=== PATIENT | female | born 1945 | race Caucasian/White ===

== ENCOUNTER → 2018-07-30 | Outpatient (CLI) | payer MEDICARE ==
[2018-07-30 14:52] LABS: BASO % 0.5 % (0.0-1.0); EOS # 0.2 10^3/uL (0.0-0.50); EOS % 2.1 % (0.0-3.0); HEMATOCRIT 44.1 % (42.0-52.0); HEMOGLOBIN 14.5 g/dl (13.5-17.5); LYMPH # 1.5 10^3/uL (1.5-4.5); LYMPH % 16.7 % (24.0-44.0); MEAN CORPUSCULAR HEMOGLOBIN 29.6 pg (27.0-33.0); MEAN CORPUSCULAR HGB CONC 32.9 g/dl (32.0-36.5); MONO # 0.7 10^3/uL (0.0-0.8); MONO % 7.5 % (0.0-5.0); NEUTROPHILS # 6.4 10^3/uL (1.8-7.7); NEUTROPHILS % 72.7 % (36.0-66.0); PLATELET COUNT, AUTOMATED 307 10^3/uL (150-450); WHITE BLOOD COUNT 8.7 10^3/uL (4.0-10.0)
[2018-07-30 15:14] LABS: ALBUMIN 4.3 GM/DL (3.2-5.2); ALT/SGPT 26 U/L (12-78); BILIRUBIN,TOTAL 0.6 MG/DL (0.2-1.0); BLOOD UREA NITROGEN 19 MG/DL (7-18); CALCIUM LEVEL 9.1 MG/DL (8.8-10.2); CARBON DIOXIDE LEVEL 30 MEQ/L (21-32); CHLORIDE LEVEL 100 MEQ/L (98-107); CHOLESTEROL LEVEL 196 MG/DL (<200); CHOLESTEROL RISK RATIO 3.015 (<5); CREATININE FOR GFR 0.97 MG/DL (0.70-1.30); FREE T4 1.14 NG/DL (0.76-1.46); GLOMERULAR FILTRATION RATE > 60.0 (>42); GLUCOSE, FASTING 98 MG/DL (70-100); HDL CHOLESTEROL 65 MG/DL (>40); LDL CHOLESTEROL 109 MG/DL (<100); NON-HDL-C 131 MG/DL; POTASSIUM SERUM 4.1 MEQ/L (3.5-5.1); SODIUM LEVEL 134 MEQ/L (136-145); TOTAL PROTEIN 7.8 GM/DL (6.4-8.2); TRIGLYCERIDES LEVEL 110 MG/DL (<150)
[2018-07-30 15:46] LABS: ERYTHROCYTE SEDIMENTATION RATE 5 mm/hr (0-20)
== END ==
LOC: M LAB 14:13 → EDSEX 14:13
PROVIDERS: ATTEND Physician Assistant Medical
DX: I10 Essential (primary) hypertension (principal); E78.2 Mixed hyperlipidemia; E55.9 Vitamin D deficiency, unspecified; R53.83 Other fatigue

== ENCOUNTER → 2018-09-21 | Outpatient (CLI) | payer MEDICARE ==
[~2018-09-21] MED LIST: ALEV220T22 PO; ASPI81TA85 PO; ATEN50TA2 PO; ATOR1TAB19 PO; COQ150CH PO; FLUO40CA PO; HYDR-3713 PO; MS C15TA8 PO; ONETAB35 PO; PURE500C5 PO; TRAM1CAP15 PO; XARE10TA PO
[2018-09-21 10:38] LABS: INR 0.97
[2018-09-21 10:39] LABS: PARTIAL THROMBOPLASTIN TIME 29.4 SECONDS (25.4-37.6)
--- NOTE | 2018-09-21 11:24 | REP ---
Chest x-ray: Two views. History: Preop chest x-ray. Hypertension. Findings: The lungs are somewhat hyperinflated. Pleural angles are sharp. There are granulomatous lymph node calcifications in the mediastinum. Heart size is normal. Pulmonary vasculature is not increased. There are degenerative changes in the lower thoracic spine. Impression: Hyperinflation. No acute disease. Electronically Signed by Marino Tejeda MD 09/21/2018 02:47 P
--- NOTE | 2018-09-21 23:55 | ECGEPIP ---
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
== END ==
LOC: M LAB 09:57
PROVIDERS: ATTEND Physician Assistant Medical
DX: Z01.818 Encounter for other preprocedural examination (principal); M16.11 Unilateral primary osteoarthritis, right hip

== ENCOUNTER 2018-09-25 06:54 | Inpatient (IN) | payer MEDICARE ==
--- NOTE | 2018-09-24 09:23 | HPE ---
DATE OF ADMISSION: 09/25/2018 ATTENDING PHYSICIAN: Jeffry Cardoza MD CHIEF COMPLAINT: Right hip pain and stiffness. HISTORY: This is a pleasant 72-year-old female patient with progressively worsening right hip pain and stiffness. She has failed to improve with conservative management and has elected for right hip total arthroplasty for her continued symptoms. She has consented for right hip total arthroplasty by Dr. Cardoza. ALLERGIES: No known drug allergies. CURRENT MEDICATIONS: - fluoxetine 40 mg one p.o. b.i.d. - atenolol 50 mg one p.o. daily - atorvastatin 10 mg one p.o. at bedtime PAST MEDICAL HISTORY: Hypertension. Depression. Hyperlipidemia. Chronic right hip pain. PAST SURGICAL HISTORY: Right total knee arthroplasty. Right foot bunionectomy. Cataract extraction. FAMILY HISTORY: Noncontributory. SOCIAL HISTORY: Patient does not smoke. Denies alcohol use. 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 REVIEW OF SYSTEMS: Denies fever, chills, chest pain, shortness breath, nausea, vomiting, diarrhea, recent upper respiratory or urinary tract infection symptoms. She does report right hip pain and stiffness with weightbearing activities. PHYSICAL EXAMINATION: VITAL SIGNS: Height 5 feet 6-1/2 inches, weight 170.8, temperature 98.6, blood pressure 135/85, pulse 86, respirations 18. She is normocephalic, atraumatic, well-developed, well-nourished adult female who ambulates with an antalgic gait favoring the right side. Examination of the right hip shows overlying skin is intact with no erythema, edema or ecchymosis or rash. She has discomfort throughout range of motion of the right hip. The right lower extremity is well perfused. Neck is supple and nontender with no lymphadenopathy or jugular venous distention (JVD). Lungs are clear to auscultation bilaterally with no wheezes, rales, rhonchi. Cardiovascular: Regular rate and rhythm. Abdomen: Soft and nontender to palpation. EKG noted for sinus rhythm. Chest x-ray with no acute cardiopulmonary processes. LABS: White count 8.7, red count 4.9, hemoglobin 14.5, hematocrit 44.1, sed rate 5, BUN 19, creatinine 0.97, PT 13, INR 0.97. Preoperative medical optimization by Dr. Butcher was completed and reviewed today on the chart. IMPRESSION: Right hip symptomatic osteoarthritis. PLAN: Consented for right total hip arthroplasty by Dr. Jeffry Cardoza.
[~2018-09-25] VITALS: Ht 170.2 cm; Wt 77.1 kg
[~2018-09-25 06:54] MED LIST changes: +LR 1,000 ML IV ONE; -MS C15TA8 PO; -XARE10TA PO
[2018-09-25] MEDS ORDERED: PROPOFOL 500 MG/50 ML VIAL As Ordered ONE (07:41)
[2018-09-25] MEDS ORDERED: BUPIVACAINE/DEXTROSE 0.75% 2 ML AMP As Ordered ONE (07:41)
[2018-09-25] MEDS ORDERED: LIDOCAINE 2% INJ 100 MG/5 ML SDV (FOR ANES.) As Ordered ONE (07:41)
[2018-09-25] MEDS ORDERED: fentaNYL 100 MCG/2 ML INJECTION (J3010) As Ordered ONE (07:42)
[2018-09-25] MEDS ORDERED: MIDAZOLAM INJ 2 MG/2 ML VIAL (J2250) As Ordered ONE (07:42)
[2018-09-25] MEDS ORDERED: TRANEXAMIC ACID 100 MG/ML 10ML VIAL As Ordered ONE (07:57)
[2018-09-25] MEDS ORDERED: EPINEPHrine 1MG/ML INJ 30ML MD-VIAL As Ordered ONE (07:58)
[2018-09-25] MEDS ORDERED: ceFAZolin 1GM INJ (J0690 PER 500MG) As Ordered ONE (07:58)
[2018-09-25] MEDS ORDERED: BUPIVACAINE LIPOSOME/PF 1.3% 20ML VIAL (13.3MG/ML)(EXPAREL)(C9290 PER1MG) As Ordered ONE (07:59)
--- NOTE | 2018-09-25 08:35 | IPN ---
DATE: 09/25/2018 The patient seen and examined. She wished to go ahead with a right total hip arthroplasty. Pre-op medical clearance was obtained. She understands the nature this the risks of bleeding, infection, damage to nerves, vessels, persistent pain, wear loosening, dislocation, leg length inequality, blood clots, medical problems, , among others. She wishes to proceed with hip replacement for severe right hip pain.
[2018-09-25] MEDS ORDERED: PHENYLephrine HCL 500 MCG/5 ML (100MCG/ML) SYRINGE (J2370) As Ordered ONE (09:34)
[2018-09-25] MEDS ORDERED: ePHEDrine SULFATE 25 MG/5 ML(5MG/ML) SYRINGE As Ordered ONE (09:34)
[2018-09-25] MEDS ORDERED: LR 1,000 ML IV SCH ×2 (10:45→11:00)
[2018-09-25] MEDS ORDERED: ACETAMINOPHEN TAB 650MG DOSE (2X325MG) PO PRN (10:45)
[2018-09-25] MEDS ORDERED: ONDANSETRON 4MG/2ML VIAL (J2405) IV PRN (10:45)
[2018-09-25] MEDS ORDERED: MORPHINE 4 MG/ML 1ML VIAL/SYRINGE (J2270) IV PRN ×2 (10:45)
[2018-09-25] MEDS ORDERED: FLEET ENEMA PR PRN (10:45)
[2018-09-25] MEDS ORDERED: PROMETHAZINE INJ 25 MG/ML VIAL (J2550) IV PRN (11:00)
[2018-09-25] MEDS ORDERED: METOCLOPRAMIDE INJ 10MG/2ML VIAL (J2765) IV PRN (11:00)
[2018-09-25] MEDS ORDERED: fentaNYL 100 MCG/2 ML INJECTION (J3010) IV PRN (11:00)
--- NOTE | 2018-09-25 11:06 | RO ---
DATE OF PROCEDURE: 09/25/2018 PREOPERATIVE DIAGNOSIS: Right hip osteoarthritis. POSTOPERATIVE DIAGNOSIS: Right hip osteoarthritis. PROCEDURE: Right total hip arthroplasty using a [place] size 6 standard +5 36 ball, 58 acetabular component. SURGEON: Jeffry Cardoza MD SHIPPING POINT INSPECTOR: Sylvester Abdi PA-C ANESTHESIA: Spinal. ESTIMATED BLOOD LOSS (EBL): 200. COMPLICATIONS: None. INDICATION: A 72-year-old woman who has had gradually worsening right hip pain with some shortening of this right leg. She was not able to tolerate the discomfort any more and wished to go ahead with a hip replacement. She understood the nature of this, the risks of bleeding, infection, damage to nerves, vessels, persistent pain, wear loosening, dislocation, leg length inequality that is persistent, among others. DESCRIPTION OF PROCEDURE: The patient was taken to the operating room, placed in the left lateral decubitus position after the spinal was introduced. The right hip was prepped and draped in usual sterile fashion. She was placed on the [place] positioner. All areas were padded appropriately. The right hip was prepped and draped in the usual sterile fashion. Time-out was performed. I then created a longitudinal incision over the lateral aspect of the hip. Sharp dissection was carried down through subcutaneous tissue until the fascia was encountered. I controlled hemostasis with the cautery. I then incised the fascia khang and exposed the abductor. She did have some abductor pull-off that was noted with some sclerosis along the lateral side of her trochanter. I then gradually divided the anterior 40% of the abductor off, exposing the femoral neck and exposing the proximal femur down to the lesser trochanter. We gradually externally rotated the femur and dislocated the hip without difficulty. I then used the canal-initiating reamer followed by the canal-finding reamer and lateralizing reamer and sequentially reamed up to a size 6, which had good purchase and seemed to be the appropriate size, and this was templated. The neck cut was made about three-quarters of a fingerbreadth up from the lesser trochanter. We directed our attention to the acetabulum and removed soft tissue from around the acetabulum. There were some cysts noted. I then sequentially reamed and eventually reamed up to a size 57, which had good bleeding bone. I was able to get through the sclerotic bone. There was some anterior osteophyte. I irrigated copiously and then impacted in a 58 cup, which had excellent fit and was very solid, well seated in the appropriate amount of anteversion and horizontal tilt. I placed the actual 58 x 36 liner and impacted this in place. I had placed an apex hole eliminator and irrigated. I then directed attention to the femur and sequentially broached up to a size 6, which had a good fit and fill. We trialed off this with a 1.5 standard and a 5 standard. I felt that the 5 standard was the most appropriate, had good soft tissue tension, minimal shuck in full extension, excellent stability in flexion internal rotation and extension external rotation. I felt as though I was not able to lengthen her any more due to soft tissue tension. We then selected these components. I irrigated, placed the actual stem, impacted it in place, dried the taper, placed the +5 36 ball, impacted this in place. We then reduced the hip, again put the hip through range of motion. I was very pleased with stability and position. I had removed the osteophytes from the anterior wall of the acetabulum. The Exparel was then placed in the deep tissues. I placed tranexamic acid (TXA) in the deep tissues, repaired the minimus with #1 Vicryl suture, irrigated copiously as I had several times prior to this, repaired the abductor with #1 Vicryl suture with several stitches being placed through the bone. I had also decorticated the sclerotic area along the lateral aspect of the femur. Excellent repair was noted. I then irrigated, closed the fascia khang with #1 Vicryl suture, running Stratafix, subcutaneous with 2-0 Vicryl, irrigating at each level, closed the skin with peace. Sterile dressing was applied. She was taken to recovery room in stable condition. The plan will be routine postoperative. The commercial assistant was instrumental in holding retractors, assisting in reducing and dislocating the hip, and assisting in wound closure.
--- NOTE | 2018-09-25 11:28 | REP ---
Portable right hip two views: On the AP view, there is a total hip arthroplasty with the components tightly applied and in satisfactory position alignment. Lateral view is suboptimal for visualization of the acetabular cup and femoral head portion of the arthroplasty. The arthroplasty stem is in satisfactory position alignment. A repeat lateral view is recommended. Electronically Signed by Darion Raines MD 09/25/2018 11:20 A
[2018-09-25] MEDS: NORCO, ANEXSIA 5/325MG TABLET (HYDROcodone/ACETAMINOPHEN) PO PRN ×3 (11:58→21:42)
--- NOTE | 2018-09-25 12:57 | CR.PDOC ---
General Date of Consultation: September 25, 2018 Referring Provider: Jeffry Cardoza Attending Physician: ALLAN ALATORRE MD Consultation REASON FOR CONSULTATION/CHIEF COMPLAINT: [Medical management]. HISTORY OF PRESENT ILLNESS: [72 years old white female with progressively worsening of the right hip pain and stiffness. She felt improved with conservative management. Hence was sent to the orthopedic surgeon who elected as right total hip arthroplasty for continued symptoms and she has hip arthroplasty done today and we will called in for medical management]. ALLERGIES: Please see below. HOME MEDICATIONS: Please see below. PAST MEDICAL HISTORY: Hypertension, depression, hyperlipidemia, chronic right hip pain]. PAST SURGICAL HISTORY: Right total knee arthroplasty, right foot bunionectomy, cataract extraction FAMILY HISTORY: Father: [Noncontributory] Mother: [Noncontributory] Siblings: [Noncontributory] Children: [Noncontributory] Hereditary Diseases: [Not applicable] Unexpected deaths due to medical reasons: [None] SOCIAL HISTORY: Marital status and/or living arrangements: [Lives with family] Children: Employment: Tobacco use:[, No] ETOH: [, No] Illicit drug use: [, No] IV drug use: Other relevant social factors: REVIEW OF SYSTEMS: CONSTITUTIONAL: [No complaints]. HEENT: [, No eye ENT complaint]. CARDIOVASCULAR: [. No chest pain or arrhythmia]. RESPIRATORY: [Claribel breath or cough]. GENITOURINARY: [Dysuria, frequency]. MUSCULOSKELETAL: [, Muscle aches or pains]. GASTROINTESTINAL: [, No nausea, vomiting, diarrhea]. SKIN: [No rash or redness ]. NEUROLOGICAL: [. No weakness or facial palsy]. PSYCHIATRIC: [No depression, anxiety, ]. ENDOCRINE: [, No no and diabetes, hypothyroidism]. HEMATOLOGIC/LYMPHATIC: [Anemia of weakness]. ALLERGIC/IMMUNOLOGIC: . PHYSICAL EXAMINATION: VITAL SIGNS: Please see below. GENERAL APPEARANCE: [Awake, alert, oriented, in no distress]. HEENT: [TIGIST]. RESPIRATORY: [Clear to A&P]. CARDIOVASCULAR: [S1, S2, regular]. ABDOMEN: [, Soft, nontender, bowel sounds present]. EXTREMITIES: [No clubbing, cyanosis, edema]. NEUROLOGICAL: [, No motor or sensory deficit]. PSYCHIATRIC: [. No weakness]. LABORATORY DATA: Please see below. ASSESSMENT/PLAN: #1, status post right total hip replacement #2, hypertension #3, hyperlipidemia Patient has been admitted to medical floor for further care And management has been started by surgery DVT prophylaxis with sternal to his been started Will hold aspirin in the meantime Continue all other home medication including beta blockers and statin PT, OT Will follow patient with you throughout her stay at the [facility] floor Vital Signs/I&O Vital Signs Date Time Temp Pulse Resp B/P (MAP) Pulse Ox O2 Delivery O2 Flow Rate FiO2 09/25/18 12:20 16 09/25/18 12:01 57 128/63 (84) 98 09/25/18 11:10 97.7 Laboratory Data Labs 24H Laboratory Tests 2 09/25/18 07:12: Erythrocyte Sedimentation Rate 18 Allergies Coded Allergies: oxycodone (Verified Adverse Reaction, Intermediate, drop in BP, 08/28/18) Home Medications Scheduled Ascorbic Acid (Vitamin C) 500 Mg Capsule.er, 500 MG PO DAILY, (Reported) Aspirin (Aspir 81) 81 Mg Tablet.dr, 81 MG PO DAILY, #30 (Reported) Atenolol (Atenolol) 50 Mg Tablet, 50 MG PO DAILY, (Reported) Atorvastatin Calcium (Atorvastatin Calcium) 10 Mg Tablet, 10 MG PO DAILY, (Reported) Fluoxetine Hcl (Fluoxetine HCl) 40 Mg Capsule, 40 MG PO DAILY, (Reported) Folic Acid/Multivit,Iron,Cochise (One Daily For Women Tablet) 1 Each Tablet, 1 TAB PO DAILY, (Reported) Naproxen Sodium (Aleve) 220 Mg Tablet, 220 MG PO PRN, (Reported) Scheduled PRN Hydrocodone/Acetaminophen (Hydrocodone-Acetamin 5-325 mg) 1 Each Tablet, 1 TAB PO Q6H PRN for PAIN, #20 (Reported) MDD 4 Miscellaneous Medications Ubidecarenone (Coq10) 50 Mg Tab.chew, 30 MG PO, (Reported) ALLAN ALATORRE MD September 25, 2018 12:56
[2018-09-25 13:00] VITALS: BP 138/68
[2018-09-25 13:30] VITALS: BP 145/67
[2018-09-25 14:30] VITALS: BP 128/58
[2018-09-25 15:30] VITALS: BP 144/73
[2018-09-25] MEDS: FLUoxetine 20 MG CAP PO SCH (16:39)
[2018-09-25] MEDS: ATORVASTATIN 10 MG TAB PO SCH (16:39)
[2018-09-25] MEDS: ATENOLOL 50 MG TAB PO SCH (16:39)
[2018-09-25 19:30] VITALS: BP 124/64
[2018-09-25 23:30] VITALS: BP 124/56
[2018-09-26 03:30] VITALS: BP 129/61
[2018-09-26 05:50] LABS: HEMATOCRIT 30.5 % (36.0-47.0); HEMOGLOBIN 9.8 g/dl (12.0-15.5); MEAN CORPUSCULAR HEMOGLOBIN 29.7 pg (27.0-33.0); MEAN CORPUSCULAR HGB CONC 32.1 g/dl (32.0-36.5); MEAN CORPUSCULAR VOLUME 92.4 fl (80.0-96.0); PLATELET COUNT, AUTOMATED 238 10^3/uL (150-450); WHITE BLOOD COUNT 8.5 10^3/uL (4.0-10.0)
[2018-09-26] MEDS ORDERED: traMADol 50 MG TAB PO PRN ×2 (06:00)
[2018-09-26 06:20] LABS: ALT/SGPT 21 U/L (12-78); BILIRUBIN,TOTAL 0.6 MG/DL (0.2-1.0); BLOOD UREA NITROGEN 24 MG/DL (7-18); CALCIUM LEVEL 8.1 MG/DL (8.8-10.2); CARBON DIOXIDE LEVEL 27 MEQ/L (21-32); CHLORIDE LEVEL 100 MEQ/L (98-107); CREATININE FOR GFR 0.73 MG/DL (0.55-1.30); GLOMERULAR FILTRATION RATE > 60.0 (>39); GLUCOSE, FASTING 117 MG/DL (70-100); MAGNESIUM LEVEL 1.8 MG/DL (1.8-2.4); POTASSIUM SERUM 3.7 MEQ/L (3.5-5.1); SODIUM LEVEL 134 MEQ/L (136-145); TOTAL PROTEIN 6.4 GM/DL (6.4-8.2)
[2018-09-26] MEDS: ACETAMINOPHEN 500 MG TAB PO SCH ×3 (06:39→21:47)
[2018-09-26] MEDS ORDERED: HYDR-3713 PO (07:04)
[2018-09-26] MEDS ORDERED: XARE10TA PO (07:04)
[2018-09-26] MEDS: MIRALAX *UNIT DOSE* 17GM PACKET PO SCH (08:11)
[2018-09-26] MEDS: ATORVASTATIN 10 MG TAB PO SCH (08:11)
[2018-09-26] MEDS: ONDANSETRON 4 MG TAB (S0181) PO PRN ×2 (08:11→20:32)
[2018-09-26] MEDS: MOM 30ML SUSPENSION UDC PO SCH (08:11)
[2018-09-26] MEDS: FLUoxetine 20 MG CAP PO SCH (08:19)
[2018-09-26] MEDS: MORPHINE 15 MG SA TAB PO SCH ×2 (08:19→20:32)
[2018-09-26 10:00] VITALS: BP 99/57
[2018-09-26] MEDS: ATENOLOL 50 MG TAB PO SCH (11:23)
--- NOTE | 2018-09-26 12:49 | IPNPDOC ---
Subjective Date Seen The patient was seen on 09/26/18. Subjective Chief Complaint/HPI Patient is comfortable of her no new complaints. The present time General: Denies: ROS Unobtainable, Chills, Night Sweats, Fatigue, Malaise, Normal Appetite, Other Symptoms Constitutional: Denies: Chills, Fever, Malaise, Night Sweats, Weakness, Fatigue, Weight Loss, Lethargy, Other Eyes: Denies: Pain, Vision change, Conjunctivae inflammation, Eyelid inflammation, Redness, Other ENT: Denies: Head Aches, Ear Pain, Dysphagia, Sinus Congestion, Post Nasal D rip, Sore Throat, Epistaxis, Other Symptoms Skin: Denies: Rash, Lesions, Jaundice, Bruising, Itching, Dry, Breakdown, Nail Changes, Other Pulmonary: Denies: Dyspnea, Cough, Pleuritic Chest Pain, Other Symptoms Cardiovascular: Denies: Chest Pain, Palpitations, Orthopnea, Paroxysmal Noc. Dyspnea, Edema, Lt Headedness, Other Symptoms Gastrointestinal: Denies: Nausea, Vomiting, Abdominal Pain, Diarrhea, Constipat ion, Melena, Hematochezia, Other Symptoms Genitourinary: Denies: Dysuria, Frequency, Incontinence, Hematuria, Retention, Other Symptoms Hematologic: Denies: Bruising, Bleeding Excessively, Petecchia, Purpura, Enlarged Lymph Nodes, Other Hematologic Endocrine: Denies: Polydipsia, Polyphagia, Polyuria, Heat Intolerance, Cold Intolerance, Other Endocrine Sx Musculoskeletal: Denies: Neck Pain, Back Pain, Shoulder Pain, Arm Pain, Hand Pain, Leg Pain, Foot Pain, Joint Pain, Muscle Pain, Spasms, Other Symptoms Neurological: Denies: Weakness, Numbness, Incoordination, Change in speech, Confusion, Seizures, Other Symptoms Psych: Denies: Mood Normal, Anxiety, Depression, Memory Issues, Thoughts of Self Harm, Anger, Thoughts of Harming Other, Other Psych Objective Physical Examination General Exam: Positive: Alert, Cooperative Eye Exam: Positive: PERRLA, Conjunctiva & lids normal ENT Exam: Positive: Atraumatic Neck Exam: Positive: Supple, JVD Chest Exam: Positive: Clear to auscultation, Normal air movement Heart Exam: Positive: Rate Normal, Normal S1, Normal S2 Abdomen Exam: Positive: Normal bowel sounds, Soft, Tenderness, Hepatospenomegaly Skin Exam: Positive: Nl turgor and temperature Neuro Exam: Positive: Normal Gait, Normal Speech Psych Exam: Positive: Mental status NL A-FIB/CHADSVASC A-FIB History Current/History of A-Fib/PAF?: No Assessment /Plan Problems (1) HTN (hypertension) Status: Chronic Response to Treatment: Controlled Problem Text: Under well control Continue present meds (2) Hyperlipemia Status: Chronic Problem Text: Continue home meds (3) Hip joint replacement status Status: Acute Problem Text: Postop day #1 PT eval Pain management Further, as per orthopedic Plan/VTE VTE Prophylaxis Ordered?: Yes VS, I&O, 24H, Fishbone Vital Signs/I&O Vital Signs Date Time Temp Pulse Resp B/P (MAP) Pulse Ox O2 Delivery O2 Flow Rate FiO2 09/26/18 11:23 72 99/57 09/26/18 10:00 97.7 16 95 I&O- Last 24 Hours up to 6 AM 09/26/18 06:00 Intake Total 3650 ml Output Total 1050 ml Balance 2600 ml Laboratory Data 24H LABS Laboratory Tests 2 09/26/18 05:28: Nucleated Red Blood Cells % (auto) 0.0, Anion Gap 7L, Glomerular Filtration Rate > 60.0, Blood Urea Nitrogen 24H, Creatinine 0.73, Sodium Level 134L, Potassium Level 3.7, Chloride Level 100, Carbon Dioxide Level 27, Calcium Level 8.1L, Aspa rtate Amino Transf (AST/SGOT) 19, Alanine Aminotransferase (ALT/SGPT) 21, Alkaline Phosphatase 67, Total Bilirubin 0.6, Total Protein 6.4, Albumin 3.0L, Magnesium Level 1.8, Albumin/Globulin Ratio 0.88L CBC/BMP Laboratory Tests 09/26/18 05:28 Red Blood Count 3.30 L, Mean Corpuscular Volume 92.4, Mean Corpuscular Hemoglobin 29.7, Mean Corpuscular Hemoglobin Concent 32.1, Red Cell Distribution Width 14.2, Calcium Level 8.1 L, Aspartate Amino Transf (AST/SGOT) 19, Alanine Aminotransferase (ALT/SGPT) 21, Alkaline Phosphatase 67, Total Bilirubin 0.6, Total Protein 6.4, Albumin 3.0 L ALLAN ALATORRE MD September 26, 2018 12:49
[2018-09-26 14:00] VITALS: BP 119/57
[2018-09-26] MEDS: RIVAROXABAN 10 MG TAB (XARELTO) PO SCH (18:02)
[2018-09-26 22:00] VITALS: BP 132/58
[2018-09-27 06:00] VITALS: BP 142/65
[2018-09-27] MEDS ORDERED: MS C15TA8 PO (06:19)
[2018-09-27] MEDS: ACETAMINOPHEN 500 MG TAB PO SCH ×3 (06:22→21:04)
[2018-09-27 06:26] LABS: HEMATOCRIT 30.5 % (36.0-47.0); HEMOGLOBIN 9.9 g/dl (12.0-15.5); MEAN CORPUSCULAR HEMOGLOBIN 29.8 pg (27.0-33.0); MEAN CORPUSCULAR HGB CONC 32.5 g/dl (32.0-36.5); MEAN CORPUSCULAR VOLUME 91.9 fl (80.0-96.0); PLATELET COUNT, AUTOMATED 249 10^3/uL (150-450); RED BLOOD COUNT 3.32 10^6/uL (4.00-5.40); WHITE BLOOD COUNT 8.3 10^3/uL (4.0-10.0)
[2018-09-27] MEDS: ATENOLOL 50 MG TAB PO SCH (09:32)
[2018-09-27] MEDS: FLUoxetine 20 MG CAP PO SCH (09:32)
[2018-09-27] MEDS: MOM 30ML SUSPENSION UDC PO SCH (09:32)
[2018-09-27] MEDS: MIRALAX *UNIT DOSE* 17GM PACKET PO SCH (09:32)
[2018-09-27] MEDS: MORPHINE 15 MG SA TAB PO SCH ×2 (09:33→20:45)
[2018-09-27] MEDS: ATORVASTATIN 10 MG TAB PO SCH (09:33)
[2018-09-27] MEDS: ONDANSETRON 4 MG TAB (S0181) PO PRN ×2 (09:33→21:01)
--- NOTE | 2018-09-27 10:01 | IPNPDOC ---
Subjective Date Seen The patient was seen on 09/27/18. Subjective Chief Complaint/HPI Offers no new complaints. Physical therapy and progress General: Denies: ROS Unobtainable, Chills, Night Sweats, Fatigue, Malaise, Normal Appetite, Other Symptoms Constitutional: Denies: Chills, Fever, Malaise, Night Sweats, Weakness, Fatigue, Weight Loss, Lethargy, Other Eyes: Denies: Pain, Vision change, Conjunctivae inflammation, Eyelid inflammation, Redness, Other ENT: Denies: Head Aches, Ear Pain, Dysphagia, Sinus Congestion, Post Nasal Drip, Sore Throat, Epistaxis, Other Symptoms Skin: Denies: Rash, Lesions, Jaundice, Bruising, Itching, Dry, Breakdown, Nail Changes, Other Pulmonary: Denies: Dyspnea, Cough, Pleuritic Chest Pain, Other Symptoms Cardiovascular: Denies: Chest Pain, Palpitations, Orthopnea, Paroxysmal Noc. Dyspnea, Edema, Lt Headedness, Other Symptoms Gastrointestinal: Denies: Nausea, Vomiting, Abdominal Pain, Diarrhea, Constipation, Melena, Hematochezia, Other Symptoms Genitourinary: Denies: Dysuria, Frequency, Incontinence, Hematuria, Retention, Other Symptoms Hematologic: Denies: Bruising, Bleeding Excessively, Petecchia, Purpura, Enlarged Lymph Nodes, Other Hematologic Endocrine: Denies: Polydipsia, Polyphagia, Polyuria, Heat Intolerance, Cold Intolerance, Other Endocrine Sx Musculoskeletal: Denies: Neck Pain, Back Pain, Shoulder Pain, Arm Pain, Hand Pain, Leg Pain, Foot Pain, Joint Pain, Muscle Pain, Spasms, Other Symptoms Neurological: Denies: Weakness, Numbness, Incoordination, Change in speech, Confusion, Seizures, Other Symptoms Psych: Denies: Mood Normal, Anxiety, Depression, Memory Issues, Thoughts of Self Harm, Anger, Thoughts of Harming Other, Other Psych Objective Physical Examination General Exam: Positive: Alert, Cooperative Eye Exam: Positive: PERRLA, Conjunctiva & lids normal ENT Exam: Positive: Atraumatic Neck Exam: Positive: Supple, JVD Chest Exam: Positive: Clear to auscultation, Normal air movement Heart Exam: Positive: Rate Normal, Normal S1, Normal S2 Abdomen Exam: Positive: Normal bowel sounds, Soft, Tenderness, Hepatospenomegaly Skin Exam: Positive: Nl turgor and temperature Neuro Exam: Positive: Normal Gait, Normal Speech Psych Exam: Positive: Mental status NL A-FIB/CHADSVASC A-FIB History Current/History of A-Fib/PAF?: No Assessment /Plan Problems (1) HTN (hypertension) Status: Chronic Response to Treatment: Controlled Problem Text: Under well control Continue present meds (2) Hyperlipemia Status: Chronic Problem Text: Continue home meds (3) Hip joint replacement status Status: Acute Problem Text: Postop day #1 PT eval Pain management Further, as per orthopedic Plan/VTE VTE Prophylaxis Ordered?: Yes VS, I&O, 24H, Fishbone Vital Signs/I&O Vital Signs Date Time Temp Pulse Resp B/P (MAP) Pulse Ox O2 Delivery O2 Flow Rate FiO2 09/27/18 09:33 16 09/27/18 09:32 68 142/65 09/27/18 06:00 98.7 97 I&O- Last 24 Hours up to 6 AM 09/27/18 06:00 Intake Total 1770 ml Output Total 3050 ml Balance -1280 ml Laboratory Data 24H LABS Laboratory Tests 2 09/27/18 05:20: Nucleated Red Blood Cells % (auto) 0.0 CBC/BMP Laboratory Tests 09/27/18 05:20 Red Blood Count 3.32 L, Mean Corpuscular Volume 91.9, Mean Corpuscular Hemoglobin 29.8, Mean Corpuscular Hemoglobin Concent 32.5, Red Cell Distribution Width 14.3 ALLAN ALATORRE MD September 27, 2018 10:01
[2018-09-27 15:00] VITALS: BP 127/76
[2018-09-27] MEDS: RIVAROXABAN 10 MG TAB (XARELTO) PO SCH (17:52)
[2018-09-27 22:00] VITALS: BP 126/66
[2018-09-28] MEDS: ACETAMINOPHEN 500 MG TAB PO SCH (05:46)
[2018-09-28 06:00] VITALS: BP 168/55
[2018-09-28] MEDS: MOM 30ML SUSPENSION UDC PO SCH (09:04)
[2018-09-28] MEDS: MIRALAX *UNIT DOSE* 17GM PACKET PO SCH (09:05)
[2018-09-28] MEDS: ATORVASTATIN 10 MG TAB PO SCH (09:07)
[2018-09-28] MEDS: MORPHINE 15 MG SA TAB PO SCH (09:07)
[2018-09-28] MEDS: FLUoxetine 20 MG CAP PO SCH (09:08)
[2018-09-28 09:09] VITALS: BP 168/55
[2018-09-28] MEDS: ATENOLOL 50 MG TAB PO SCH (09:09)
--- NOTE | 2018-09-28 09:37 | IPNPDOC ---
Subjective Date Seen The patient was seen on 09/28/18. Subjective Chief Complaint/HPI Patient is a 72-year-old female with progressively worsening right hip pain and stiffness. She failed to improve with conservative management and elected for right hip total arthroplasty. Right hip arthroplasty was completed at 09/26/2018 without perioperative events. Events since last encounter This morning, complains of right hip and leg pain rated 6 out of 10, but bearable. Has no other complaint. Denies chest pain, shortness of breath. Objective Physical Examination Other physical findings GENERAL: NAD SKIN : Warm, dry HEENT: Atraumatic, normocephalic, PERRL, moist mucous membrane CARDIOVASCULAR: Regular rate and rhythm, S1S2, no JVD, no edema, distal pulses + and palpable RESP: CTAB, no accessory muscle use noted ABDOMEN: BS+ non distended non tender MS: Right hip pain NEURO: Alert and oriented x 3, CN2-12 grossly intact PSYCH: no anxiety or agitation, appropriate mood and affect. A-FIB/CHADSVASC A-FIB History Current/History of A-Fib/PAF?: No Current Oral Anticoagulant The: No Assessment /Plan Problems (1) HTN (hypertension) Status: Chronic Response to Treatment: Controlled Problem Text: -Continue atenolol -Blood pressure monitoring. Unit protocol- (2) Hyperlipemia Status: Chronic Problem Text: Continue atorvastatin (3) Hip joint replacement status Status: Acute Problem Text: -Status post right hip arthroplasty -Management by primary team -Tolerating physical therapy without issues -Pain management by primary team (4) DVT prophylaxis Problem Text: -Continue Xarelto Plan/VTE VTE Prophylaxis Ordered?: Yes VS, I&O, 24H, Fishbone Vital Signs/I&O Vital Signs Date Time Temp Pulse Resp B/P (MAP) Pulse Ox O2 Delivery O2 Flow Rate FiO2 09/28/18 09:09 71 168/55 09/28/18 09:07 16 09/28/18 06:00 98.4 96 I&O- Last 24 Hours up to 6 AM 09/28/18 06:00 Intake Total 2580 ml Output Total 450 ml Balance 2130 ml JULIANNA FABIAN CONCRETE FINISHER APPRENTICE September 28, 2018 09:37
--- NOTE | 2018-10-01 15:49 | DSES ---
DATE OF ADMISSION: 09/25/2018 DATE OF DISCHARGE: 09/28/2018 ATTENDING PHYSICIAN: Dr. Cardoza ADMISSION DIAGNOSIS: Osteoarthritis, right hip. OTHER DIAGNOSES: 1. Hypertension. 2. Depression. 3. Elevated lipids. DISCHARGE DIAGNOSIS: Osteoarthritis, right hip status post right total hip arthroplasty. OPERATION PERFORMED: Right total hip arthroplasty. HISTORY: This a pleasant 72-year-old female patient with progressively worsening right hip pain and stiffness. She failed to improve with conservative management. She was admitted for elective hip replacement on the right side. HOSPITAL COURSE: The patient was admitted on the day of surgery and underwent a right total hip arthroplasty which was uneventful. She did have a slow recovery in the postoperative period due to pain control issues. Ultimately, her pain was under control. On the day of discharge, she was doing well, weightbearing as tolerated on her right lower extremity. She will use thromboembolic-deterrent (MARYAN) stockings for 30 days postoperative for deep vein thrombosis (DVT) prophylaxis. She will resume her preoperative medications and diet. She will followup in our office in 10-14 days for surgical followup. She was given instructions to include but not limited to wound monitoring and activity limitations. She will also use Xarelto 10 mg per the protocol for DVT prophylaxis. Please refer to the medical record further details.
== END 2018-09-28 13:15 | disposition home or self-care (01) | DRG 470 ==
LOC: EDSEX → M OR 06:54 → EDUNIT# 08:30 → M MS5PR 12:45
PROVIDERS: ADMIT Orthopaedic Surgery; ATTEND Orthopaedic Surgery
PROC: 0SR904A Replacement of Right Hip Joint with Ceramic on Polyethylene Synthetic Substitute, Uncemented, Open Approach (ICD-10-PCS; principal; 2018-09-25 08:30)
DX: M16.11 Unilateral primary osteoarthritis, right hip (principal); Z79.899 Other long term (current) drug therapy; I10 Essential (primary) hypertension; F32.9 Major depressive disorder, single episode, unspecified; E78.5 Hyperlipidemia, unspecified; Z96.651 Presence of right artificial knee joint; Z79.82 Long term (current) use of aspirin

== ENCOUNTER → 2018-10-01 | Outpatient (REF) | payer MEDICARE ==
[~2018-10-01] MED LIST changes: -LR 1,000 ML IV ONE; +MS C15TA8 PO; +XARE10TA PO
[2018-10-01 18:54] LABS: BASO % 0.4 % (0.0-1.0); EOS # 0.1 10^3/uL (0.0-0.50); EOS % 1.8 % (0.0-3.0); HEMATOCRIT 30.2 % (36.0-47.0); HEMOGLOBIN 9.9 g/dl (12.0-15.5); LYMPH # 0.8 10^3/uL (1.5-4.5); LYMPH % 11.6 % (24.0-44.0); MEAN CORPUSCULAR HEMOGLOBIN 30.6 pg (27.0-33.0); MEAN CORPUSCULAR HGB CONC 32.8 g/dl (32.0-36.5); MEAN CORPUSCULAR VOLUME 93.2 fl (80.0-96.0); MONO # 0.9 10^3/uL (0.0-0.8); MONO % 12.1 % (0.0-5.0); NEUTROPHILS # 5.3 10^3/uL (1.8-7.7); NEUTROPHILS % 73.1 % (36.0-66.0); PLATELET COUNT, AUTOMATED 428 10^3/uL (150-450); RED BLOOD COUNT 3.24 10^6/uL (4.00-5.40); WHITE BLOOD COUNT 7.3 10^3/uL (4.0-10.0)
[2018-10-01 19:37] LABS: ERYTHROCYTE SEDIMENTATION RATE 83 mm/hr (0-30)
== END ==
LOC: M LABDRAW1 16:53
PROVIDERS: ATTEND Physician Assistant Surgical
DX: Z47.1 Aftercare following joint replacement surgery (principal); Z79.899 Other long term (current) drug therapy

== ENCOUNTER 2018-10-02 12:40 | Emergency (ER) | payer MEDICARE ==
[~2018-10-02] VITALS: Ht 170.2 cm; Wt 75.9 kg
[2018-10-02 14:20] LABS: HEMATOCRIT 30.9 % (36.0-47.0); HEMOGLOBIN 10.2 g/dl (12.0-15.5); MEAN CORPUSCULAR HEMOGLOBIN 30.8 pg (27.0-33.0); MEAN CORPUSCULAR VOLUME 93.4 fl (80.0-96.0); PLATELET COUNT, AUTOMATED 435 10^3/uL (150-450); RED BLOOD COUNT 3.31 10^6/uL (4.00-5.40); WHITE BLOOD COUNT 7.3 10^3/uL (4.0-10.0)
[2018-10-02 14:39] LABS: BLOOD UREA NITROGEN 14 MG/DL (7-18); C REACTIVE PROTEIN QUANTITATIV 7.52 MG/DL (0.00-0.30); CALCIUM LEVEL 9.1 MG/DL (8.8-10.2); CARBON DIOXIDE LEVEL 27 MEQ/L (21-32); CHLORIDE LEVEL 98 MEQ/L (98-107); GLOMERULAR FILTRATION RATE > 60.0 (>39); GLUCOSE, FASTING 108 MG/DL (70-100); POTASSIUM SERUM 4.8 MEQ/L (3.5-5.1); SODIUM LEVEL 133 MEQ/L (136-145)
[2018-10-02 15:12] LABS: ERYTHROCYTE SEDIMENTATION RATE 106 mm/hr (0-30)
[2018-10-02 16:24] VITALS: BP 108/61
== END 2018-10-02 16:25 | disposition home or self-care (01) ==
LOC: M ED 12:40
DX: M96.89 Other intraoperative and postprocedural complications and disorders of the musculoskeletal system (principal); Z96.641 Presence of right artificial hip joint; I10 Essential (primary) hypertension; K21.9 Gastro-esophageal reflux disease without esophagitis; Z88.5 Allergy status to narcotic agent

== ENCOUNTER → 2018-10-10 | Outpatient (REF) | payer MEDICARE ==
[2018-10-10 16:06] LABS: BASO % 0.3 % (0.0-1.0); EOS # 0.2 10^3/uL (0.0-0.50); EOS % 1.8 % (0.0-3.0); HEMATOCRIT 34.1 % (36.0-47.0); HEMOGLOBIN 10.7 g/dl (12.0-15.5); LYMPH % 10.7 % (24.0-44.0); MEAN CORPUSCULAR HEMOGLOBIN 30.1 pg (27.0-33.0); MEAN CORPUSCULAR HGB CONC 31.4 g/dl (32.0-36.5); MEAN CORPUSCULAR VOLUME 96.1 fl (80.0-96.0); MONO # 0.7 10^3/uL (0.0-0.8); MONO % 7.5 % (0.0-5.0); NEUTROPHILS % 78.9 % (36.0-66.0); PLATELET COUNT, AUTOMATED 555 10^3/uL (150-450); RED BLOOD COUNT 3.55 10^6/uL (4.00-5.40); WHITE BLOOD COUNT 8.9 10^3/uL (4.0-10.0)
== END ==
LOC: M LABDRAW1 13:19
PROVIDERS: ATTEND Orthopaedic Surgery
DX: Z47.1 Aftercare following joint replacement surgery (principal); Z79.899 Other long term (current) drug therapy

== ENCOUNTER → 2018-12-13 | Outpatient (REF) | payer MEDICARE ==
[2018-12-13 16:08] LABS: BASO % 0.4 % (0.0-1.0); EOS # 0.2 10^3/uL (0.0-0.50); EOS % 2.2 % (0.0-3.0); HEMATOCRIT 40.5 % (36.0-47.0); HEMOGLOBIN 12.6 g/dl (12.0-15.5); LYMPH # 1.3 10^3/uL (1.5-4.5); LYMPH % 18.5 % (24.0-44.0); MEAN CORPUSCULAR HEMOGLOBIN 28.8 pg (27.0-33.0); MEAN CORPUSCULAR HGB CONC 31.1 g/dl (32.0-36.5); MEAN CORPUSCULAR VOLUME 92.7 fl (80.0-96.0); MONO # 0.5 10^3/uL (0.0-0.8); MONO % 7.1 % (0.0-5.0); NEUTROPHILS # 5.2 10^3/uL (1.8-7.7); NEUTROPHILS % 71.4 % (36.0-66.0); PLATELET COUNT, AUTOMATED 280 10^3/uL (150-450); RED BLOOD COUNT 4.37 10^6/uL (4.00-5.40); WHITE BLOOD COUNT 7.2 10^3/uL (4.0-10.0)
[2018-12-13 18:26] LABS: ERYTHROCYTE SEDIMENTATION RATE 12 mm/hr (0-30)
== END ==
LOC: M LABDRAW1 12:38
PROVIDERS: ATTEND Physician Assistant Surgical
DX: Z47.1 Aftercare following joint replacement surgery (principal); Z96.641 Presence of right artificial hip joint; M16.11 Unilateral primary osteoarthritis, right hip

== ENCOUNTER → 2020-09-28 | Outpatient (CLI) | payer OTHER ==
[~2020-09-28] MED LIST changes: -ASPI81TA85 PO; +ASPI81TA86 PO
--- NOTE | 2020-09-29 03:57 | REPPI ---
INDICATION: M25.442 M25.441 SWELLING OF JOINT OF LEFT AND RIGHT HAND COMPARISON: None. TECHNIQUE: AP, lateral, bilateral oblique views right and left hand. FINDINGS: Advanced diffuse bilateral osteoarthritic degenerative changes are appreciated throughout the hand and wrist primarily involving the 1st and 2nd carpometacarpal joints, metacarpal joints, and the interphalangeal joints. No obvious acute or healed injury identified. 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 <Electronically signed by Joe Ricci > 09/29/20 [id number]
== END ==
LOC: M PLAIMG 11:22
PROVIDERS: ATTEND Physician Assistant
DX: M25.442 Effusion, left hand (principal); M25.441 Effusion, right hand; M19.041 Primary osteoarthritis, right hand; M19.042 Primary osteoarthritis, left hand; M19.031 Primary osteoarthritis, right wrist; M19.032 Primary osteoarthritis, left wrist

== ENCOUNTER → 2020-09-30 | Outpatient (REF) | payer OTHER ==
[2020-09-30 10:20] LABS: HEMATOCRIT 38.5 % (36.0-47.0); MEAN CORPUSCULAR HGB CONC 31.2 g/dl (32.0-36.5); MEAN CORPUSCULAR VOLUME 96.3 fl (80.0-96.0); PLATELET COUNT, AUTOMATED 289 10^3/uL (150-450); WHITE BLOOD COUNT 6.7 10^3/uL (4.0-10.0)
[2020-09-30 10:50] LABS: ALBUMIN 3.4 GM/DL (3.2-5.2); ALT/SGPT 15 U/L (12-78); BILIRUBIN,TOTAL 0.4 MG/DL (0.2-1.0); BLOOD UREA NITROGEN 18 MG/DL (7-18); CARBON DIOXIDE LEVEL 30 MEQ/L (21-32); CHLORIDE LEVEL 104 MEQ/L (98-107); CHOLESTEROL LEVEL 163 MG/DL (<200); CHOLESTEROL RISK RATIO 2.716 (<5); CREATININE FOR GFR 0.76 MG/DL (0.55-1.30); FREE T4 1.13 NG/DL (0.76-1.46); GLOMERULAR FILTRATION RATE > 60.0 (>39); GLUCOSE, FASTING 94 MG/DL (70-100); HDL CHOLESTEROL 60 MG/DL (>40); LDL CHOLESTEROL 88 MG/DL (<100); NON-HDL-C 103 MG/DL; POTASSIUM SERUM 4.9 MEQ/L (3.5-5.1); RHEUMATOID FACTOR QUANT < 10.0 IU/ML (<15.0); SODIUM LEVEL 138 MEQ/L (136-145); TOTAL PROTEIN 6.8 GM/DL (6.4-8.2); TRIGLYCERIDES LEVEL 75 MG/DL (<150)
[2020-09-30 10:51] LABS: ERYTHROCYTE SEDIMENTATION RATE 61 mm/hr (0-30); TOTAL 25(OH) VITAMIN D 24.7 NG/ML (30.0-100.0)
[2020-10-02 00:11] LABS: ANTINUCLEAR ANTIBODIES DIRECT Negative (Negative); CYCLIC CITRULLINATED PEPTIDE 7 units (0-19)
== END ==
LOC: M SFHCPLAZ 08:26
PROVIDERS: ATTEND Physician Assistant
DX: Z00.00 Encounter for general adult medical examination without abnormal findings (principal); M25.442 Effusion, left hand; M25.441 Effusion, right hand; E78.2 Mixed hyperlipidemia; Z13.29 Encounter for screening for other suspected endocrine disorder; E55.9 Vitamin D deficiency, unspecified

== ENCOUNTER → 2020-10-16 | Outpatient (CLI) | payer OTHER ==
--- NOTE | 2020-10-21 15:52 | REPMRS ---
Patient History The patient states she has not had a clinical breast exam in over a year. Patient is postmenopausal and is nulliparous. Family history of endometrial cancer at age 62 in paternal cousin. No Hormone Replacement Therapy Tomosynthesis is performed. Volpara breast density is c. Tyrer-zick lifetime risk of breast cancer 5.4%. Moderna vaccine 07/18/20 right arm. 08/18/20 right arm. Patient states no breast complaints today. Patient has signed MRS History Sheet. Digital Woman Screen Mammo: October 16, 2020 - Exam #: [id number] Bilateral CC and MLO view(s) were taken. Technologist: RT Shreyas FINDINGS: The breast tissue is heterogeneously dense. This may lower the sensitivity of mammography. There has been no change in the appearance of the mammogram from the prior studies. There is a moderate amount of residual fibroglandular tissue which is fairly symmetric. There is no interval development of dominant mass, areas of architectural distortion, or clustered microcalcification typical of malignancy. Assessment: BI-RADS/ACR category 1 mammogram. Negative Mammogram. Recommendation Routine screening mammogram in 1 year (for women over age 40). This mammogram was interpreted with the aid of an FDA-approved computer-aided dectection system. Electronically Signed By: Darion Caceres MD 10/21/20 [id number]
== END ==
LOC: M WHC 10:20
PROVIDERS: ATTEND Physician Assistant
DX: Z12.31 Encounter for screening mammogram for malignant neoplasm of breast (principal); Z80.49 Family history of malignant neoplasm of other genital organs

== ENCOUNTER → 2021-08-03 | Outpatient (CLI) | payer MEDICARE ==
[2021-08-03 16:52] LABS: BASO % 0.6 % (0.0-1.0); EOS # 0.2 10^3/uL (0.0-0.5); HEMATOCRIT 39.9 % (36.0-47.0); HEMOGLOBIN 12.8 g/dl (12.0-15.5); LYMPH # 1.5 10^3/uL (1.5-5.0); LYMPH % 23.2 % (24.0-44.0); MEAN CORPUSCULAR HEMOGLOBIN 30.2 pg (27.0-33.0); MEAN CORPUSCULAR HGB CONC 32.1 g/dl (32.0-36.5); MEAN CORPUSCULAR VOLUME 94.1 fl (80.0-96.0); MONO # 0.7 10^3/uL (0.0-0.8); MONO % 11.1 % (2.0-8.0); NEUTROPHILS # 3.9 10^3/uL (1.5-8.5); NEUTROPHILS % 61.8 % (36.0-66.0); PLATELET COUNT, AUTOMATED 214 10^3/uL (150-450); RED BLOOD COUNT 4.24 10^6/uL (4.00-5.40); WHITE BLOOD COUNT 6.4 10^3/uL (4.0-10.0)
[2021-08-03 17:14] LABS: ERYTHROCYTE SEDIMENTATION RATE 12 mm/hr (0-30)
[2021-08-03 17:18] LABS: ALBUMIN 4.1 GM/DL (3.2-5.2); ALT/SGPT 28 U/L (12-78); BILIRUBIN,TOTAL 0.6 MG/DL (0.2-1.0); BLOOD UREA NITROGEN 30 MG/DL (7-18); C REACTIVE PROTEIN QUANTITATIV 0.67 MG/DL (0.00-0.30); CALCIUM LEVEL 9.4 MG/DL (8.8-10.2); CARBON DIOXIDE LEVEL 31 MEQ/L (21-32); CHLORIDE LEVEL 109 MEQ/L (98-107); CHOLESTEROL LEVEL 143 MG/DL (<200); CHOLESTEROL RISK RATIO 2.508 (<5); CREATININE FOR GFR 0.96 MG/DL (0.55-1.30); GLOMERULAR FILTRATION RATE > 60.0 (>39); GLUCOSE, FASTING 89 MG/DL (70-100); HDL CHOLESTEROL 57 MG/DL (>40); LDL CHOLESTEROL 71 MG/DL (<100); NON-HDL-C 86 MG/DL; POTASSIUM SERUM 4.6 MEQ/L (3.5-5.1); RHEUMATOID FACTOR QUANT < 10.0 IU/ML (<15.0); SODIUM LEVEL 140 MEQ/L (136-145); TRIGLYCERIDES LEVEL 77 MG/DL (<150)
== END ==
LOC: M PLALAB 15:16
PROVIDERS: ATTEND Physician Assistant
DX: E78.2 Mixed hyperlipidemia (principal); R79.82 Elevated C-reactive protein (CRP); F33.0 Major depressive disorder, recurrent, mild

== ENCOUNTER → 2021-11-18 | Outpatient (REF) | payer MEDICARE ==
[2021-11-18 17:07] LABS: BASO % 0.3 % (0.0-1.0); EOS # 0.4 10^3/uL (0.0-0.5); EOS % 6.2 % (0.0-3.0); HEMOGLOBIN 13.1 g/dl (12.0-15.5); LYMPH % 15.8 % (24.0-44.0); MEAN CORPUSCULAR HGB CONC 31.2 g/dl (32.0-36.5); MEAN CORPUSCULAR VOLUME 92.9 fl (80.0-96.0); MONO # 0.6 10^3/uL (0.0-0.8); MONO % 9.2 % (2.0-8.0); NEUTROPHILS # 4.1 10^3/uL (1.5-8.5); NEUTROPHILS % 68.3 % (36.0-66.0); PLATELET COUNT, AUTOMATED 237 10^3/uL (150-450); RED BLOOD COUNT 4.52 10^6/uL (4.00-5.40)
[2021-11-18 17:17] LABS: ALBUMIN 3.8 GM/DL (3.2-5.2); BILIRUBIN,TOTAL 0.8 MG/DL (0.2-1.0); C REACTIVE PROTEIN QUANTITATIV 0.3 MG/DL (0.00-0.30); CALCIUM LEVEL 9.5 MG/DL (8.8-10.2); GLOMERULAR FILTRATION RATE 57.9 (>39); POTASSIUM SERUM 4.7 MEQ/L (3.5-5.1); TOTAL PROTEIN 6.8 GM/DL (6.4-8.2)
[2021-11-18 19:07] LABS: ERYTHROCYTE SEDIMENTATION RATE 12 mm/hr (0-30)
[2021-11-20 14:09] LABS: SSA SJOGRENS A <0.2 AI (0.0-0.9); SSB SJOGRENS B <0.2 AI (0.0-0.9)
== END ==
LOC: M SFHCRHEU 12:44
PROVIDERS: ATTEND Internal Medicine Rheumatology
DX: R79.82 Elevated C-reactive protein (CRP) (principal); M25.50 Pain in unspecified joint; M35.00 Sjogren syndrome, unspecified

== ENCOUNTER → 2022-10-21 | Outpatient (CLI) | payer MEDICARE ==
[~2022-10-21] MED LIST changes: +ASCO500C3 PO; -PURE500C5 PO
[2022-10-21 13:43] LABS: BASO % 0.5 % (0.0-1.0); EOS # 0.2 10^3/uL (0.0-0.5); EOS % 2.8 % (0.0-3.0); HEMOGLOBIN 13.7 g/dl (12.0-15.5); LYMPH # 1.2 10^3/uL (1.5-5.0); LYMPH % 18.5 % (24.0-44.0); MEAN CORPUSCULAR HEMOGLOBIN 29.8 pg (27.0-33.0); MEAN CORPUSCULAR HGB CONC 31.9 g/dl (32.0-36.5); MEAN CORPUSCULAR VOLUME 93.5 fl (80.0-96.0); MONO # 0.6 10^3/uL (0.0-0.8); MONO % 9.2 % (2.0-8.0); NEUTROPHILS # 4.5 10^3/uL (1.5-8.5); NEUTROPHILS % 68.8 % (36.0-66.0); PLATELET COUNT, AUTOMATED 212 10^3/uL (150-450); WHITE BLOOD COUNT 6.5 10^3/uL (4.0-10.0)
[2022-10-21 13:55] LABS: HEMOGLOBIN A1c 5.4 % (4.0-6.0)
[2022-10-21 14:18] LABS: C REACTIVE PROTEIN QUANTITATIV < 0.40 MG/DL (<1.0)
[2022-10-21 14:19] LABS: ALBUMIN 4.1 G/DL (3.2-5.2); ALKALINE PHOSPHATASE 93 U/L (46-116); ALT/SGPT 17 U/L (7.0-40); AST/SGOT 21 U/L (<34); BILIRUBIN,TOTAL 0.6 MG/DL (0.3-1.2); BLOOD UREA NITROGEN 33 MG/DL (9-23); CALCIUM LEVEL 9.3 MG/DL (8.3-10.6); CARBON DIOXIDE LEVEL 29 MMOL/L (20-31); CHLORIDE LEVEL 105 MMOL/L (98-107); CHOLESTEROL LEVEL 142 MG/DL (<200); CHOLESTEROL RISK RATIO 3.16 (<5); CREATININE FOR GFR 0.85 MG/DL (0.55-1.30); GLOMERULAR FILTRATION RATE > 60.0 (>39); GLUCOSE, FASTING 104 MG/DL (74-106); HDL CHOLESTEROL 44.9 MG/DL (>40); LDL CHOLESTEROL 75.5 MG/DL (<100); NON-HDL-C 97.1 MG/DL; SODIUM LEVEL 140 MMOL/L (136-145); TOTAL PROTEIN 6.8 G/DL (5.7-8.2); TRIGLYCERIDES LEVEL 108 MG/DL (<150)
[2022-10-21 14:20] LABS: THYROID STIMULATING HORMONE 3.815 uIU/ML (0.55-4.78)
== END ==
LOC: M PLALAB 11:26
PROVIDERS: ATTEND Physician Assistant
DX: I11.9 Hypertensive heart disease without heart failure (principal); R79.82 Elevated C-reactive protein (CRP); Z79.899 Other long term (current) drug therapy

== ENCOUNTER → 2022-11-22 | Outpatient (CLI) | payer MEDICARE | LOC: M WHC 14:53 | PROVIDERS: ATTEND Physician Assistant | DX: Z12.31 Encounter for screening mammogram for malignant neoplasm of breast (principal) ==

== ENCOUNTER → 2023-04-14 | Outpatient (CLI) | payer MEDICARE | LOC: M WHC 10:46 | PROVIDERS: ATTEND Physician Assistant | DX: M85.852 Other specified disorders of bone density and structure, left thigh (principal) ==

== ENCOUNTER → 2023-07-28 | Outpatient (CLI) | payer MEDICARE | LOC: M SOG 07:54 | PROVIDERS: ATTEND Orthopaedic Surgery | DX: M17.12 Unilateral primary osteoarthritis, left knee (principal); M25.561 Pain in right knee ==

== ENCOUNTER → 2023-10-03 | Outpatient (CLI) | payer MEDICARE ==
[2023-10-03 09:46] LABS: BASO % 0.5 % (0.0-1.0); EOS # 0.2 10^3/uL (0.0-0.5); EOS % 4.2 % (0.0-3.0); HEMATOCRIT 39.9 % (36.0-47.0); HEMOGLOBIN 12.5 g/dl (12.0-15.5); LYMPH # 1.1 10^3/uL (1.5-5.0); LYMPH % 19.4 % (24.0-44.0); MEAN CORPUSCULAR HEMOGLOBIN 27.9 pg (27.0-33.0); MEAN CORPUSCULAR HGB CONC 31.3 g/dl (32.0-36.5); MEAN CORPUSCULAR VOLUME 89.1 fl (80.0-96.0); MONO # 0.7 10^3/uL (0.0-0.8); MONO % 11.6 % (2.0-8.0); NEUTROPHILS # 3.7 10^3/uL (1.5-8.5); NEUTROPHILS % 63.9 % (36.0-66.0); PLATELET COUNT, AUTOMATED 250 10^3/uL (150-450); RED BLOOD COUNT 4.48 10^6/uL (4.00-5.40); WHITE BLOOD COUNT 5.7 10^3/uL (4.0-10.0)
[2023-10-03 10:13] LABS: ALBUMIN 3.7 G/DL (3.2-5.2); ALKALINE PHOSPHATASE 80 U/L (46-116); ALT/SGPT 17 U/L (7.0-40); AST/SGOT 17 U/L (<34); BILIRUBIN,TOTAL 0.5 MG/DL (0.3-1.2); BLOOD UREA NITROGEN 50 MG/DL (9-23); CALCIUM LEVEL 9.2 MG/DL (8.3-10.6); CARBON DIOXIDE LEVEL 25 MMOL/L (20-31); CHLORIDE LEVEL 109 MMOL/L (98-107); CHOLESTEROL LEVEL 156 MG/DL (<200); CHOLESTEROL RISK RATIO 3.09 (<5); CREATININE FOR GFR 0.85 MG/DL (0.55-1.30); GLOMERULAR FILTRATION RATE > 60.0 (>39); GLUCOSE, FASTING 104 MG/DL (74-106); HDL CHOLESTEROL 50.4 MG/DL (>40); NON-HDL-C 105.6 MG/DL; POTASSIUM SERUM 4.1 MMOL/L (3.5-5.1); SODIUM LEVEL 140 MMOL/L (136-145); TOTAL PROTEIN 6.8 G/DL (5.7-8.2); TRIGLYCERIDES LEVEL 88 MG/DL (<150)
[2023-10-03 10:14] LABS: THYROID STIMULATING HORMONE 3.342 uIU/ML (0.55-4.78); TOTAL 25(OH) VITAMIN D 37.8 NG/ML (20.0-100.0)
[2023-10-03 10:15] LABS: FREE T4 0.81 NG/DL (0.89-1.76)
[2023-10-03 10:34] LABS: HEMOGLOBIN A1c 5.6 % (4.0-6.0)
== END ==
LOC: M PLALAB 08:15
PROVIDERS: ATTEND Physician Assistant
DX: Z13.1 Encounter for screening for diabetes mellitus (principal); E55.9 Vitamin D deficiency, unspecified; I11.9 Hypertensive heart disease without heart failure; E78.2 Mixed hyperlipidemia

== ENCOUNTER → 2024-01-11 | Outpatient (CLI) | payer MEDICARE | LOC: M WHC 11:54 | PROVIDERS: ATTEND Physician Assistant | DX: Z12.31 Encounter for screening mammogram for malignant neoplasm of breast (principal) ==

== ENCOUNTER → 2024-01-23 | Outpatient (CLI) | payer MEDICARE ==
[2024-01-23 12:45] LABS: BASO % 0.6 % (0.0-1.0); EOS # 0.2 10^3/uL (0.0-0.5); EOS % 3.2 % (0.0-3.0); HEMATOCRIT 42.3 % (36.0-47.0); HEMOGLOBIN 13.1 g/dl (12.0-15.5); LYMPH # 1.4 10^3/uL (1.5-5.0); LYMPH % 19.2 % (24.0-44.0); MEAN CORPUSCULAR HEMOGLOBIN 27.8 pg (27.0-33.0); MEAN CORPUSCULAR VOLUME 89.8 fl (80.0-96.0); MONO # 0.7 10^3/uL (0.0-0.8); MONO % 10.3 % (2.0-8.0); NEUTROPHILS # 4.7 10^3/uL (1.5-8.5); NEUTROPHILS % 66.3 % (36.0-66.0); PLATELET COUNT, AUTOMATED 244 10^3/uL (150-450); RED BLOOD COUNT 4.71 10^6/uL (4.00-5.40); WHITE BLOOD COUNT 7.2 10^3/uL (4.0-10.0)
[2024-01-23 12:59] LABS: INR 1.11
[2024-01-23 13:18] LABS: HEMOGLOBIN A1c 5.4 % (4.0-6.0)
[2024-01-23 13:28] LABS: ALBUMIN 3.9 G/DL (3.2-5.2); ALKALINE PHOSPHATASE 90 U/L (46-116); ALT/SGPT 18 U/L (7.0-40); AST/SGOT 15 U/L (<34); BILIRUBIN,TOTAL 0.6 MG/DL (0.3-1.2); BLOOD UREA NITROGEN 34 MG/DL (9-23); CALCIUM LEVEL 9.7 MG/DL (8.3-10.6); CARBON DIOXIDE LEVEL 28 MMOL/L (20-31); CHLORIDE LEVEL 105 MMOL/L (98-107); CREATININE FOR GFR 0.83 MG/DL (0.55-1.30); GLOMERULAR FILTRATION RATE > 60.0 (>39); GLUCOSE, FASTING 91 MG/DL (74-106); POTASSIUM SERUM 4.8 MMOL/L (3.5-5.1); SODIUM LEVEL 137 MMOL/L (136-145); TOTAL 25(OH) VITAMIN D 46.8 NG/ML (20.0-100.0); TOTAL PROTEIN 7.1 G/DL (5.7-8.2)
== END ==
LOC: M PLALAB 11:05
PROVIDERS: ATTEND Orthopaedic Surgery
DX: M17.12 Unilateral primary osteoarthritis, left knee (principal); Z79.01 Long term (current) use of anticoagulants; Z79.899 Other long term (current) drug therapy

== ENCOUNTER 2024-02-06 10:31 | Outpatient (RCR) | payer MEDICARE | END 2024-02-12 | LOC: M PT 10:31 | PROVIDERS: ATTEND Orthopaedic Surgery | DX: M17.12 Unilateral primary osteoarthritis, left knee (principal) ==

== ENCOUNTER → 2024-03-15 | Outpatient (CLI) | payer MEDICARE ==
[~2024-03-15] MED LIST changes: +ATOR40TA75 PO; +CALC600T61 PO; +EQL50TAB2 PO; +PRES1CAP PO; +SERT150C PO; +THERTAB52 PO; +VITA100093 PO
== END ==
LOC: M RAD 10:07
PROVIDERS: ATTEND Orthopaedic Surgery
DX: M17.12 Unilateral primary osteoarthritis, left knee (principal); M25.562 Pain in left knee

== ENCOUNTER 2024-04-02 06:19 | Observation (INO) | payer MEDICARE ==
[~2024-04-02] VITALS: Ht 170.2 cm; Wt 94.7 kg
[2024-04-02] VITALS (10 sets, daily range): BP systolic 92–104; BP diastolic 47–54; TEMP 96.8–97.3; O2SAT 92–95
[2024-04-02] MEDS: TRANEXAMIC ACID 100 MG/ML 10ML VIAL IV ONE (06:00)
[2024-04-02] MEDS ORDERED: LIDOCAINE 2% 100MG/5ML SDV (FOR ANES.) As Ordered ONE (07:14)
[2024-04-02] MEDS ORDERED: fentaNYL 100 MCG/2 ML INJECTION As Ordered ONE (07:14)
[2024-04-02] MEDS ORDERED: propofoL 200 MG/20 ML VIAL As Ordered ONE (07:14)
[2024-04-02] MEDS ORDERED: MIDAZOLAM INJ 2MG/2ML VIAL As Ordered ONE (07:14)
[2024-04-02] MEDS ORDERED: ACETAMINOPHEN 1000MG/100ML IV BAG As Ordered ONE (07:14)
[2024-04-02] MEDS ORDERED: ROCURONIUM BROMIDE 50MG/5ML VIAL As Ordered ONE (07:14)
[2024-04-02] MEDS ORDERED: ETOMIDATE INJ 20MG/10ML VIAL As Ordered ONE (07:14)
[2024-04-02] MEDS ORDERED: ONDANSETRON 4MG 2ML VIAL As Ordered ONE (07:14)
[2024-04-02] MEDS: TRANEXAMIC ACID 100 MG/ML 10ML VIAL As Ordered ONE (07:45)
[2024-04-02] MEDS: LIDOCAINE 1% SDV 5ML VIAL PN ONE (07:49)
[2024-04-02] MEDS: dexAMETHasone 10MG/1ML VIAL PRES.FREE PN ONE (07:49)
[2024-04-02] MEDS: ceFAZolin SOD 2 GM in IV 1 EA IV ONE (08:05)
[2024-04-02] MEDS: REK 50ML SYRINGE IA ONE (09:30)
[2024-04-02] MEDS ORDERED: HYDROmorphone HCL 2MG/ML 1ML VIAL As Ordered ONE (10:05)
[2024-04-02] MEDS ORDERED: SENNA 8.6 MG TAB (SENOKOT) PO PRN (10:20)
[2024-04-02] MEDS ORDERED: SUGAMMADEX SODIUM 500 MG/5 ML VIAL (BRIDION) As Ordered ONE (10:25)
[2024-04-02] MEDS ORDERED: traMADol 50 MG TAB PO PRN (10:35)
[2024-04-02] MEDS ORDERED: MORPHINE SULFATE TAB IMM. REL. 15 MG PO PRN (10:40)
[2024-04-02] MEDS: LR 1,000 ML IV SCH (11:05)
[2024-04-02] MEDS ORDERED: ONDANSETRON 4MG 2ML VIAL IV PRN (11:05)
[2024-04-02] MEDS ORDERED: fentaNYL 100 MCG/2 ML INJECTION IV PRN (11:05)
[2024-04-02] MEDS ORDERED: HYDROMORPHONE HCL 0.5 MG/ 0.5 ML SYRINGE IV PRN (11:05)
[2024-04-02] MEDS: ONDANSETRON 4MG 2ML VIAL IV PRN (11:31)
[2024-04-02] MEDS: METOCLOPRAMIDE INJ 10MG/2ML VIAL IV PRN (11:47)
[2024-04-02] MEDS: FERROUS SULFATE 325MG TAB PO SCH (12:29)
[2024-04-02] MEDS: ASCORBIC ACID 500 MG TAB PO SCH (12:29)
[2024-04-02] MEDS: DOCUSATE SODIUM 100MG CAPSULE PO SCH (12:29)
[2024-04-02] MEDS ORDERED: ZOLO100T PO (13:24)
[2024-04-02] MEDS ORDERED: COEN100T PO (13:24)
[2024-04-02] MEDS ORDERED: FLUT15.820 (13:24)
[2024-04-02] MEDS ORDERED: HOME MED LIST COMPLETE! XX SCH (13:25)
[2024-04-02] MEDS: atenoloL 50 MG TAB PO SCH (14:13)
[2024-04-02] MEDS: ATORVASTATIN 20 MG TAB PO SCH (14:13)
[2024-04-02] MEDS: ceFAZolin SOD 2 GM in IV 1 EA IV SCH (16:09)
[2024-04-02] MEDS ORDERED: CEPACOL LOZENGE PO PRN (17:05)
[2024-04-02] MEDS: ACETAMINOPHEN 325 MG TAB PO SCH (17:12)
[2024-04-02] MEDS: CEPACOL LOZENGE PO PRN (17:12)
[2024-04-02] MEDS: ASPIRIN 81MG ENTERIC TABLET PO SCH (20:11)
[2024-04-02] MEDS: NAPROXEN 250 MG TAB PO SCH (20:11)
[2024-04-03] VITALS (15 sets, daily range): BP systolic 88–114; BP diastolic 45–58; TEMP 97.2–97.5; O2SAT 87–96
[2024-04-03 06:40] LABS: HEMATOCRIT 31.1 % (36.0-47.0); HEMOGLOBIN 9.9 g/dl (12.0-15.5); MEAN CORPUSCULAR HEMOGLOBIN 28.9 pg (27.0-33.0); MEAN CORPUSCULAR HGB CONC 31.8 g/dl (32.0-36.5); MEAN CORPUSCULAR VOLUME 90.7 fl (80.0-96.0); PLATELET COUNT, AUTOMATED 181 10^3/uL (150-450); RED BLOOD COUNT 3.43 10^6/uL (4.00-5.40); WHITE BLOOD COUNT 8.3 10^3/uL (4.0-10.0)
[2024-04-03 07:27] LABS: ALKALINE PHOSPHATASE 58 U/L (35-104); ALT/SGPT 11 U/L (7.0-40); AST/SGOT 13 U/L (<34); BILIRUBIN,TOTAL 0.4 MG/DL (0.3-1.2); BLOOD UREA NITROGEN 28 MG/DL (9-23); CALCIUM LEVEL 8.5 MG/DL (8.3-10.6); CARBON DIOXIDE LEVEL 24 MMOL/L (20-31); CHLORIDE LEVEL 112 MMOL/L (98-107); CREATININE FOR GFR 0.79 MG/DL (0.55-1.30); GLOMERULAR FILTRATION RATE > 60.0 (>39); GLUCOSE, FASTING 94 MG/DL (74-106); POTASSIUM SERUM 3.8 MMOL/L (3.5-5.1); SODIUM LEVEL 143 MMOL/L (136-145); TOTAL PROTEIN 5.6 G/DL (5.7-8.2)
[2024-04-03] MEDS: LR 500 ML IV ONE ×2 (08:41→10:51)
[2024-04-03] MEDS ORDERED: HOME MED LIST COMPLETE! XX SCH (15:55)
[2024-04-03] MEDS: CEFDINIR 300 MG CAP (OMNICEF) PO SCH (17:50)
[2024-04-04 03:20] VITALS: BP 113/63; TEMP 97; O2SAT 91
[2024-04-04 06:24] LABS: HEMATOCRIT 30.3 % (36.0-47.0); HEMOGLOBIN 9.6 g/dl (12.0-15.5); MEAN CORPUSCULAR HEMOGLOBIN 28.6 pg (27.0-33.0); MEAN CORPUSCULAR HGB CONC 31.7 g/dl (32.0-36.5); MEAN CORPUSCULAR VOLUME 90.2 fl (80.0-96.0); PLATELET COUNT, AUTOMATED 178 10^3/uL (150-450); RED BLOOD COUNT 3.36 10^6/uL (4.00-5.40); WHITE BLOOD COUNT 6.5 10^3/uL (4.0-10.0)
[2024-04-04 06:50] LABS: ALBUMIN 2.8 G/DL (3.2-5.2); ALKALINE PHOSPHATASE 65 U/L (35-104); ALT/SGPT < 9 U/L (7.0-40); AST/SGOT 12 U/L (<34); BILIRUBIN,TOTAL 0.5 MG/DL (0.3-1.2); BLOOD UREA NITROGEN 21 MG/DL (9-23); CALCIUM LEVEL 8.4 MG/DL (8.3-10.6); CARBON DIOXIDE LEVEL 25 MMOL/L (20-31); CHLORIDE LEVEL 110 MMOL/L (98-107); CREATININE FOR GFR 0.72 MG/DL (0.55-1.30); GLOMERULAR FILTRATION RATE > 60.0 (>39); GLUCOSE, FASTING 102 MG/DL (74-106); POTASSIUM SERUM 3.8 MMOL/L (3.5-5.1); SODIUM LEVEL 141 MMOL/L (136-145); TOTAL PROTEIN 5.7 G/DL (5.7-8.2)
[2024-04-04] MEDS ORDERED: HYDR-3715 PO (11:29)
[2024-04-04] MEDS ORDERED: ASPI81TAEC PO (11:29)
[2024-04-04] MEDS ORDERED: NAPR-849 PO (11:29)
[2024-04-04] MEDS ORDERED: CEFD300CAP PO (11:29)
[2024-04-04 12:00] VITALS: BP 115/63; TEMP 97; O2SAT 95
== END 2024-04-04 14:00 | disposition home or self-care (01) ==
LOC: M SDC 06:19 → M RR INP 06:20 → M MSPAV 12:25
PROVIDERS: ADMIT Orthopaedic Surgery; ATTEND Orthopaedic Surgery
DX: M17.12 Unilateral primary osteoarthritis, left knee (principal); M21.062 Valgus deformity, not elsewhere classified, left knee; I10 Essential (primary) hypertension; E78.5 Hyperlipidemia, unspecified; F41.9 Anxiety disorder, unspecified; F32.A Depression, unspecified; Z79.899 Other long term (current) drug therapy; Z88.5 Allergy status to narcotic agent
CPT/HCPCS: 27447; 36415; 73560; 80053; 85027; 88300; 96365; 96366; 96375; 96376; 97116; 97161; 97165; 97535; C1776; C9290; G0378; J0131; J0171; J0690; J1100; J1171; J1885; J2405; J2765; J2795; J3010; S2900

== ENCOUNTER → 2024-04-15 | Outpatient (CLI) | payer MEDICARE ==
[~2024-04-15] MED LIST changes: +ASPI81TAEC PO; +CEFD300CAP PO; +COEN100T PO; +FLUT15.820; +HYDR-3715 PO; +NAPR-849 PO; +ZOLO100T PO
== END ==
LOC: M SOG 07:56
PROVIDERS: ATTEND Orthopaedic Surgery
DX: Z96.652 Presence of left artificial knee joint (principal); Z47.1 Aftercare following joint replacement surgery; M79.89 Other specified soft tissue disorders

== ENCOUNTER → 2024-06-19 | Outpatient (CLI) | payer MEDICARE | LOC: M SOG 08:05 | PROVIDERS: ATTEND Orthopaedic Surgery | DX: M25.562 Pain in left knee (principal); Z96.652 Presence of left artificial knee joint ==

== ENCOUNTER → 2025-02-14 | Outpatient (CLI) | payer MEDICARE ==
[~2025-02-14] MED LIST changes: -EQL50TAB2 PO; +VITA1TAB82 PO
== END ==
LOC: M WHC 11:06
PROVIDERS: ATTEND Family Medicine
DX: Z12.31 Encounter for screening mammogram for malignant neoplasm of breast (principal)